=== PATIENT | male | born 1950 | race Caucasian/White ===

== ENCOUNTER 2018-07-05 09:00 | Outpatient (RCR) | payer MEDICARE ==
--- NOTE | 2018-06-25 13:27 | NUR ---
Pt. in for IOP and Treatment Team. Pt. is clean and neat. Alert and oriented. Affect constricted. Pt. states "I'm not sleeping well. Pt. states "Marijuana helps to relax me". Pt. is encouraged to "try Melatonin 3mg,1 to 2 PO QHS by Yen Pagan APRN. Pt. not taking any medications for for Bipolar condition at this time. Pt. is encouraged by [employer] TECHNICIAN to consider medications. Pt. to check with his daughter to see what she is taking. Pt. to inform Program Nurse of medication. Pt. scheduled for Medication review on 07/02/18. Pt. states "the program is helping". Pt. denies any suicidal ideations. Pt. to continue with his current treatment plan. Pt. is attending IOP 3 times a week with monthly 1:1. Will follow up in one week with medication review. Treatment team is concluded.
[2018-06-29 10:42] VITALS: BP 156/95
[~2018-07-05 09:00] MED LIST: VIAGRA50 MG PO
[2018-07-13] MEDS ORDERED: TRAZODONE100 MG PO (11:56)
[2018-07-19] MEDS ORDERED: TRAZODONE50 MG PO (11:18)
[2018-07-19] MEDS ORDERED: LAMICTAL100 M1 PO (11:19)
== END 2018-07-08 23:59 | disposition still patient (30) ==
LOC: SLIP3 09:00
PROVIDERS: ATTEND Specialist
DX: F31.89 Other bipolar disorder (principal); F30.8 Other manic episodes; F41.1 Generalized anxiety disorder

== ENCOUNTER 2018-07-21 12:27 | Emergency (ER) | payer MEDICARE ==
[~2018-07-21 12:27] MED LIST changes: +LAMICTAL100 M1 PO; +TRAZODONE100 MG PO; +TRAZODONE50 MG PO
== END 2018-07-21 12:53 | disposition left against medical advice (07) ==
LOC: ED 12:27 → LWOBS 12:53
DX: Z91.19 Patient's noncompliance with other medical treatment and regimen (principal)